=== PATIENT | male | born 1985 | race Caucasian/White ===

== ENCOUNTER 2024-06-07 09:38 | Emergency (ER) | payer OTHER, SELFPAY ==
[2024-06-07 09:41] VITALS: BP 131/79; PULSE 58; RESP 16; TEMP 36.7; O2SAT 100
--- NOTE | 2024-06-07 10:00 | DI.CT_ITS ---
Exam(s) CT CERVICAL SPINE WO EXAM: CT CERVICAL SPINE WO CLINICAL HISTORY: Left arm radiculopathy, Neck pain. TECHNIQUE: Imaging Protocol: Axial computed tomography images with coronal and sagittal reformatted images were created and reviewed COMPARISON: No exams were available for comparison FINDINGS: CERVICAL SPINE: There is no evidence of acute fracture. No significant prevertebral soft tissue swelling. No significant listhesis. Mild disc space narrowing at C4-5 level and anterior osseous lipping. Also small bilateral Luschka j oint osteophytes at this level. No listhesis. Other disc spaces appear unremarkable. There is no significant facet arthropathy. No facet malalign ment. No significant osseous lesions evident. IMPRESSION: No evidence of cervical spine fracture, malalignment, nor acute compromise of the cervical spinal can al. Called by myself to ER. RADIATION DOSE DELIVERED: Total DLP DATA REPOSITORY: All CT scans at this facility are submitted to the National Radiology Data Registry (NRDR) Dose Index Registry (DIR) with the [employer] (A[employer]). RADIATION OPTIMIZATION: All CT scans at this facility use at least one of these dose optimization te chniques: automated exposure control; mA and/or kV adjustment per patient size (includes targeted exa ms where dose is matched to clinical indication); or iterative reconstruction.
--- NOTE | 2024-06-07 10:04 | ED.GENADUL_ITS ---
Discharge Plan Disposition Patient Disposition: Home Condition: Stable Discharge Details Clinical Impression: Acute cervical myofascial strain, Cervical radicular pain Primary Care Provider: Unknown,Unknown ED Provider: Vika Brenner Home Meds and New Rx's Prescriptions: No Action No Known Home Meds Discharge Instructions Instructions: Neck Stretches, Radiculopathy of the neck and back (including sciatica), Cervical Sprain ED Additional Instructions: No evidence of malalignment to your cervical spine or neck at this time. Your symptoms are most likely related to a pinched nerve. Please take the muscle relaxer as prescribed. Alternate ice and heat to the area, may also consider massage. Please take Tylenol or Ibuprofen with food every 4-6 hours as needed for pain and swelling. Follow up with primary care provider in5-7 days. Return to ED sooner if any worsening weakness in your armor concerns. Referrals: Primary Care Provider [Outside] - 1 week HPI General Mode of arrival: ambulatory . Date/Time Provider Initiated Documentation: 06/07/24 09:48 . Limitations to Documentation: no limitations . Information obtained by: patient, RN notes reviewed and old records reviewed . HPI Narrative: 39-year-old male presents to the ER left paraspinous and left cervical spine tenderness which started approximately 2 to 3 days ago went to sleep last night woke up this morning with worsening pain. He describes approximately C7-8 pain with radiation and numbness tingling into his left shoulder underneath his left upper arm and forearm into his index and thumb. He is able to make a fist however does report numbness with that. Denies any falls or significant injuries. 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 He did take ibuprofen initially none in the last 48 hours. No significant past medical history meds or allergies. No obvious deformity noted. Does have full range of motion of the shoulder. Related Data Home Medications ?Medication ?Instructions ?Recorded ?Confirmed Unknown [No Known Home Meds] 06/07/24 06/07/24 Allergies Allergy/AdvReac Type Severity Reaction Status Date / Time No Known Allergies Allergy Unverified 06/07/24 09:45 General Stated Complaint: Nk/Back Pain ELDER: 4 Review of Systems All systems reviewed & are unremarkable except as noted in HPI and below Constitutional Constitutional: Reports as per HPI, Denies frequent falls, Denies headache(s) and Denies lethargy ENT Ears, Nose, Mouth, and Throat: Denies vertigo, Denies dizziness, Denies headache(s) and Reports neck pain Musculoskeletal Musculoskeletal: Reports as per HPI, Reports neck pain, Reports numbness, Reports radiating pain into limb, Reports stiffness and Reports tingling Neurologic Neurologic: Reports as per HPI, Denies confusion, Denies vertigo, Denies dizziness, Denies frequent falls, Denies headache(s), Reports numbness, Reports radicular pain and Reports tingling Psychiatric Psychiatric: Denies confusion Exam Narrative Exam Narrative: Constitutional: Alert and oriented x3. Appears stated age. Normal body habitus. Head: Normocephalic, no trauma. Musculoskeletal: Approximately C7-C8 tenderness, no crepitus or step-off palpated, does have some left paraspinous muscle tenderness and swelling noted also, distal CMS intact. Normal gait, Moves all 4 extremities without difficulty. Skin: No suspicious rashes or lesions. Capillary refill less than 2 sec. Neurologic: Cranial nerves II-XII intact. Alert and oriented x 3. Motor: No deficits noted. Sensory: Intact bilaterally all 4 extremities. Course Vital Signs Vital signs: Vital Signs Temperature 36.7 C 06/07/24 09:41 Pulse 58 L 06/07/24 09:41 Respiratory Rate 16 06/07/24 09:41 Blood Pressure 131/79 06/07/24 09:41 Pulse Oximetry 100 06/07/24 09:41 Temperature 36.7 C 06/07/24 09:41 Temperature Source Temporal Artery Scan 06/07/24 09:41 Pulse 58 L 06/07/24 09:41 Respiratory Rate 16 06/07/24 09:41 Blood Pressure 131/79 06/07/24 09:41 Blood Pressure Position Sitting 06/07/24 09:41 Pulse Oximetry 100 06/07/24 09:41 Oxygen Delivery Method Room Air 06/07/24 09:41 Oxygen Flow Rate 0 06/07/24 09:41 Pain Level 7 06/07/24 09:41 Medical Decision Making 39-year-old male presents to the ER left paraspinous and left cervical spine tenderness which started approximately 2 to 3 days ago went to sleep last night woke up this morning with worsening pain. He describes approximately C7-8 pain with radiation and numbness tingling into his left shoulder underneath his left upper arm and forearm into his index and thumb. He is able to make a fist however does report numbness with that. Denies any falls or significant injuries. 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 He did take ibuprofen initially none in the last 48 hours. No significant past medical history meds or allergies. No obvious deformity noted. Does have full range of motion of the shoulder. CT C-spine ordered, lidocaine patch ibuprofen [address] result shows no evidence of cervical spinal fracture, no compromise of cervical spinal canal. Will discharge patient home with Flexeril to go. Will encourage follow-up with PCP. Will discuss strict return instructions to return for any worsening weakness, worsening numbness tingling or concerns. Will instruct to alternate ice and heat take Tylenol or ibuprofen every 4-6 hours as needed. Will also encourage stretching and massage. This text was generated using [employer] dictation system, please disregard any o ddities of phrase or misspellings. Quality:SDOH Health Related Social Needs: No Data to Display PFSH All Active Problems (Updated 06/07/24 @ 11:53 by Vika Brenner NP) Cervical radicular pain (Acute) Acute cervical myofascial strain (Acute) Social History Smoking/Tobacco Use Status: Never Smoking risk assessment performed?: Yes Alcohol Intake: current Alcohol Intake frequency: holidays/special occasions only Drug use: Never Substance use type: does not use Housing: apartment Do you feel safe at home: Yes Do you feel safe in your relationship?: Yes
[2024-06-07] MEDS: Ibuprofen 600 MG TAB PO (10:13)
[2024-06-07] MEDS: Lidocaine 5% Patch 1 PATCH TP (10:13)
[2024-06-07] MEDS: Cyclobenzaprine 10 MG TAB, 3 TABS/BTL PO (11:56)
[2024-06-07 12:18] VITALS: BP 132/80; PULSE 82; RESP 17; TEMP 36.8; O2SAT 95
--- NOTE | 2024-06-07 15:55 | NUR.NOTE ---
referral given to care managers to assist pt with obtaining a primary care provider for establishing care and follow up for Neck Pain and numbness and tingling as soon as available.
== END 2024-06-07 12:17 | disposition home or self-care (01) ==
PROVIDERS: Emergency Provider Registered Nurse Emergency
DX: S16.1XXA Strain of muscle, fascia and tendon at neck level, initial encounter (principal); M54.12 Radiculopathy, cervical region; X50.9XXA Other and unspecified overexertion or strenuous movements or postures, initial encounter; Y93.89 Activity, other specified
CPT/HCPCS: 99284; 72125; 99283